=== PATIENT | female | born 1985 | race Caucasian/White ===

== ENCOUNTER 2018-10-08 11:52 | Outpatient (CLI) | payer OTHER ==
[~2018-10-08] VITALS: Ht 157.5 cm; Wt 88.0 kg
[~2018-10-08 11:52] MED LIST: CHOL400C PO; IBUP-1222 PO; LABE200T6 PO; NORG1TAB26 PO; OXYC-302 PO; PREN1TAB60 PO; SENN-88 PO
[2018-10-08 12:22] VITALS: BP 136/82
[2018-10-08] MEDS ORDERED: TERBUTALINE 1 MG/ML, 1ML ONE (13:28)
[2018-10-08] MEDS ORDERED: TERBUTALINE 1 MG/ML, 1ML SQ ONE (13:30)
[2018-10-08 13:44] LABS: MICROSCOPIC INDICATED
[2018-10-08] MEDS ORDERED: LABE100T6 PO (14:48)
== END 2018-10-08 15:01 | disposition home or self-care (01) ==
LOC: LDOP 11:52
PROVIDERS: ATTEND Obstetrics & Gynecology
DX: O26.893 Other specified pregnancy related conditions, third trimester (principal); R10.9 Unspecified abdominal pain; Z3A.00 Weeks of gestation of pregnancy not specified
CPT/HCPCS: 81001; 87086; 96372; 99201; J3105; G0463

== ENCOUNTER 2018-11-04 17:32 | Outpatient (CLI) | payer OTHER ==
[~2018-11-04] VITALS: Ht 157.5 cm; Wt 86.3 kg
[~2018-11-04 17:32] MED LIST changes: +LABE100T6 PO
[2018-11-04 17:59] LABS: BASOPHILS # (AUTO) 0.08 x10^3/uL (0-0.1); BASOPHILS % (AUTO) 1 % (0-1); EOSINOPHILS # (AUTO) 0.08 x10^3/uL (0-0.4); EOSINOPHILS % (AUTO) 1 % (1-7); LYMPHOCYTES # (AUTO) 2.59 x10^3/uL (1-3.4); LYMPHOCYTES % (AUTO) 23 % (22-44); MD NO; MEAN CORPUSCULAR HEMOGLOBIN 31.6 pg (27.0-34.8); MEAN CORPUSCULAR HGB CONC 33.9 g/dL (32.4-35.8); MEAN CORPUSCULAR VOLUME 93.3 fL (80-100); MONOCYTES # (AUTO) 0.51 x10^3/uL (0.2-0.8); MONOCYTES % (AUTO) 5 % (2-9); NEUTROPHILS # (AUTO) 8.13 x10^3/uL (1.8-6.8); NEUTROPHILS % (AUTO) 71 % (42-75); PLATELET COUNT 224 x10^3/uL (130-400); RED BLOOD COUNT 3.88 x10^6/uL (3.82-5.3); RED CELL DISTRIBUTION WIDTH 12.4 % (9.6-15.2)
[2018-11-04 18:02] LABS: MICROSCOPIC NOT IND
[2018-11-04 18:03] VITALS: BP 135/88
[2018-11-04 18:11] LABS: ALANINE AMINOTRANSFERASE 20 U/L (12-78); ALBUMIN 2.9 g/dL (3.4-5.0); ANION GAP 8 mmol/L (5-15); CALCIUM 8.3 mg/dL (8.5-10.1); CHLORIDE 108 mmol/L (98-107); CREATININE 0.67 mg/dL (0.55-1.02)
[2018-11-04 18:13] LABS: ALKALINE PHOSPHATASE 71 U/L (45-117); BILIRUBIN,TOTAL 0.3 mg/dL (0.2-1.0)
== END 2018-11-04 18:40 | disposition home or self-care (01) ==
LOC: LDOP 17:32
PROVIDERS: ATTEND Obstetrics & Gynecology
DX: O09.513 Supervision of elderly primigravida, third trimester (principal); Z3A.28 28 weeks gestation of pregnancy
CPT/HCPCS: 36415; 59025; 80053; 81003; 82570; 84156; 84550; 85025; 99211; G0463

== ENCOUNTER 2018-11-28 10:57 | Outpatient (CLI) | payer OTHER ==
[~2018-11-28] VITALS: Ht 157.5 cm; Wt 90.9 kg
[2018-11-28 11:31] VITALS: BP 142/93
== END 2018-11-28 13:55 | disposition home or self-care (01) ==
LOC: LDOP 10:57
PROVIDERS: ATTEND Obstetrics & Gynecology
DX: O36.5930 Maternal care for other known or suspected poor fetal growth, third trimester, not applicable or unspecified (principal); Z3A.32 32 weeks gestation of pregnancy
CPT/HCPCS: 59025; 76819; 99211; G0463